=== PATIENT | male | born 1995 | race Caucasian/White ===

== ENCOUNTER 2023-11-27 14:59 | Emergency (ER) | payer SELFPAY ==
[~2023-11-27] VITALS: Ht 170.2 cm; Wt 78.0 kg
[2023-11-27 15:08] VITALS: O2SAT 99
[2023-11-27 15:09] VITALS: BP 133/74; PULSE 62; RESP 16; TEMP 98.8; O2SAT 100
== END 2023-11-27 16:31 | disposition left against medical advice (07) ==
LOC: ER 14:59
DX: R10.9 Unspecified abdominal pain (principal); Z53.21 Procedure and treatment not carried out due to patient leaving prior to being seen by health care provider